=== PATIENT | male | born 1985 | race Two or more races ===

== ENCOUNTER 2017-08-18 18:13 | Inpatient (IN) | payer BC ==
[~2017-08-18] VITALS: Ht 172.7 cm; Wt 87.0 kg
[2017-08-18] MEDS ORDERED: PROPOFOL 100 ML IV ONE (18:20)
[2017-08-18 19:00] VITALS: BP 130/76
[2017-08-18 19:20] VITALS: BP 104/62
[2017-08-18] MEDS: PROPOFOL 100 ML IV PRN (19:52)
[2017-08-18] MEDS ORDERED: PROPOFOL 100 ML IV PRN (21:44)
[2017-08-18] MEDS: ALBUTEROL/IPRATROPIUM 2.5MG/0.5MG, 3 ML INLINE SCH (21:51)
[2017-08-18] MEDS ORDERED: SENNOSIDES 8.8 MG/5 ML ORAL SOL NG PRN (22:00)
[2017-08-18] MEDS ORDERED: BISACODYL 10 MG SUPP PR PRN (22:00)
[2017-08-18] MEDS ORDERED: LACTULOSE 20 GM/30 ML UDC NG PRN (22:00)
[2017-08-18] MEDS ORDERED: LIDOCAINE-MPF 1%, 2ML ENDO PRN (22:00)
[2017-08-18] MEDS ORDERED: SENNA/DOCUSATE TABLET NG PRN (22:00)
[2017-08-18] MEDS ORDERED: SODIUM CHLORIDE 0.9% 1,000ML IV PRN (22:00)
[2017-08-18] MEDS ORDERED: PHARMACY MAY ADJ FOR RENAL FX MC SCH (22:00)
[2017-08-18 22:10] LABS: HEMATOCRIT 39.8 % (39.2-51.8); HEMOGLOBIN 13.4 g/dL (13.7-18.0); WHITE BLOOD COUNT 16.8 x10^3/uL (3.4-10)
[2017-08-18 22:21] LABS: BLOOD UREA NITROGEN 14 mg/dL (7-18)
[2017-08-18] MEDS: SODIUM CHLORIDE 0.9% 2,000 ML IV SCH (22:42)
[2017-08-18] MEDS: FAMOTIDINE 20 MG/2 ML IV SCH (22:42)
[2017-08-18] MEDS: PIPERACILLIN/TAZO/PMX 3.375GM 50 ML IV SCH (22:42)
[2017-08-18] MEDS: FENTANYL PF 100 MCG/2ML IVPush PRN (23:58)
[2017-08-19] MEDS: PROPOFOL 100 ML IV PRN ×4 (01:26→23:29)
[2017-08-19] MEDS: ALBUTEROL/IPRATROPIUM 2.5MG/0.5MG, 3 ML INLINE SCH ×6 (02:11→22:00)
[2017-08-19] MEDS: PIPERACILLIN/TAZO/PMX 3.375GM 50 ML IV SCH ×3 (04:01→21:17)
[2017-08-19 04:30] VITALS: BP 99/53
[2017-08-19] MEDS: FENTANYL PF 100 MCG/2ML IVPush PRN ×8 (04:42→21:45)
[2017-08-19 04:46] LABS: ABG COLLECTION SITE LEFT RADIAL; COLLATERAL CIRCULATION TESTING NORMAL
[2017-08-19 04:57] LABS: HEMATOCRIT 32.8 % (39.2-51.8); HEMOGLOBIN 11.2 g/dL (13.7-18.0); WHITE BLOOD COUNT 10.6 x10^3/uL (3.4-10)
[2017-08-19 05:02] LABS: ASPARTATE AMINO TRANSFERASE 54 U/L (15-37); BLOOD UREA NITROGEN 12 mg/dL (7-18)
[2017-08-19] MEDS: FAMOTIDINE 20 MG/2 ML IV SCH ×2 (11:37→21:56)
[2017-08-19 12:23] LABS: ABG COLLECTION SITE LEFT RADIAL; COLLATERAL CIRCULATION TESTING NORMAL
[2017-08-19 12:24] LABS: FIO2 40 %
[2017-08-19 15:00] LABS: IS PT STATUS REG ER OR PRE ER? NO
[2017-08-19] MEDS: SODIUM CHLORIDE 0.9% 2,000 ML IV SCH (15:37)
[2017-08-19] MEDS ORDERED: SODIUM CHLORIDE 0.9%, 500ML IVBOLUS ONE (17:30)
[2017-08-19 18:35] LABS: IS PT STATUS REG ER OR PRE ER? NO
[2017-08-20 00:47] LABS: IS PT STATUS REG ER OR PRE ER? NO
[2017-08-20] MEDS: ALBUTEROL/IPRATROPIUM 2.5MG/0.5MG, 3 ML INLINE SCH ×6 (02:00→22:09)
[2017-08-20] MEDS: FENTANYL PF 100 MCG/2ML IVPush PRN ×3 (02:27→08:36)
[2017-08-20] MEDS: SODIUM CHLORIDE 0.9% 2,000 ML IV SCH ×2 (02:30→13:10)
[2017-08-20] MEDS: PROPOFOL 100 ML IV PRN ×4 (03:21→17:19)
[2017-08-20] MEDS: PIPERACILLIN/TAZO/PMX 3.375GM 50 ML IV SCH ×4 (03:21→21:33)
[2017-08-20 04:26] LABS: ABG COLLECTION SITE RIGHT RADIAL; COLLATERAL CIRCULATION TESTING NORMAL
[2017-08-20 04:35] LABS: HEMATOCRIT 27.3 % (39.2-51.8); HEMOGLOBIN 9.2 g/dL (13.7-18.0)
[2017-08-20 06:43] LABS: BLOOD UREA NITROGEN 9 mg/dL (7-18)
[2017-08-20] MEDS: ENOXAPARIN 40 MG/0.4 ML SQ SCH (08:55)
[2017-08-20] MEDS: FENTANYL PF 2,500 MCG in SODIUM CHLORIDE 0.9% 200 ML IV PRN (11:35)
[2017-08-20] MEDS: FAMOTIDINE 20 MG/2 ML IV SCH ×2 (11:36→21:33)
[2017-08-21] MEDS: PROPOFOL 100 ML IV PRN ×5 (01:36→21:18)
[2017-08-21] MEDS: ALBUTEROL/IPRATROPIUM 2.5MG/0.5MG, 3 ML INLINE SCH ×2 (01:59→07:10)
[2017-08-21] MEDS: PIPERACILLIN/TAZO/PMX 3.375GM 50 ML IV SCH ×4 (03:30→21:14)
[2017-08-21 04:25] LABS: ABG COLLECTION SITE RIGHT RADIAL; COLLATERAL CIRCULATION TESTING NORMAL
[2017-08-21 04:28] LABS: HEMATOCRIT 28.2 % (39.2-51.8); HEMOGLOBIN 9.6 g/dL (13.7-18.0); WHITE BLOOD COUNT 6.8 x10^3/uL (3.4-10)
[2017-08-21 04:35] LABS: BLOOD UREA NITROGEN 11 mg/dL (7-18)
[2017-08-21] MEDS: ENOXAPARIN 40 MG/0.4 ML SQ SCH (08:42)
[2017-08-21] MEDS: FAMOTIDINE 20 MG/2 ML IV SCH ×2 (08:42→21:14)
[2017-08-21] MEDS ORDERED: ALBUTEROL/IPRATROPIUM 2.5MG/0.5MG, 3 ML INLINE PRN (14:00)
[2017-08-21] MEDS: POTASSIUM CHLORIDE 20 MEQ TAB.ER.PRT PO SCH (14:46)
[2017-08-21] MEDS ORDERED: POTASSIUM CHLORIDE 20 MEQ TAB.ER.PRT PO ONE (15:00)
[2017-08-21] MEDS ORDERED: FUROSEMIDE 40 MG/4 ML IV ONE (15:00)
[2017-08-22] MEDS: PIPERACILLIN/TAZO/PMX 3.375GM 50 ML IV SCH ×4 (02:53→20:39)
[2017-08-22] MEDS: PROPOFOL 100 ML IV PRN (02:53)
[2017-08-22 04:49] LABS: ABG COLLECTION SITE RIGHT RADIAL; COLLATERAL CIRCULATION TESTING NORMAL
[2017-08-22 04:51] LABS: HEMATOCRIT 29.6 % (39.2-51.8); HEMOGLOBIN 10.1 g/dL (13.7-18.0)
[2017-08-22] MEDS: FENTANYL PF 2,500 MCG in SODIUM CHLORIDE 0.9% 200 ML IV PRN (04:52)
[2017-08-22 05:18] LABS: ASPARTATE AMINO TRANSFERASE 46 U/L (15-37); BLOOD UREA NITROGEN 15 mg/dL (7-18)
[2017-08-22] MEDS: ENOXAPARIN 40 MG/0.4 ML SQ SCH (08:03)
[2017-08-22] MEDS: POTASSIUM CHLORIDE 20 MEQ TAB.ER.PRT PO SCH ×2 (08:03→15:05)
[2017-08-22] MEDS: FAMOTIDINE 20 MG/2 ML IV SCH ×2 (08:03→20:38)
[2017-08-22] MEDS ORDERED: FUROSEMIDE 40 MG/4 ML IV SCH (09:00)
[2017-08-22] MEDS ORDERED: HYDROcodone/APAP 5/325 TABLET PO PRN (10:30)
[2017-08-22] MEDS: HYDROcodone/APAP 5/325 TABLET PO PRN ×3 (15:05→22:50)
[2017-08-23] MEDS: PIPERACILLIN/TAZO/PMX 3.375GM 50 ML IV SCH (02:40)
[2017-08-23 04:54] LABS: ABG COLLECTION SITE RIGHT RADIAL
[2017-08-23 04:55] LABS: COLLATERAL CIRCULATION TESTING NORMAL
[2017-08-23 05:01] LABS: HEMATOCRIT 38.2 % (39.2-51.8); HEMOGLOBIN 13.1 g/dL (13.7-18.0); WHITE BLOOD COUNT 10.3 x10^3/uL (3.4-10)
[2017-08-23 05:10] LABS: BLOOD UREA NITROGEN 13 mg/dL (7-18)
[2017-08-23] MEDS: HYDROcodone/APAP 5/325 TABLET PO PRN ×4 (06:38→20:45)
[2017-08-23] MEDS ORDERED: POTASSIUM CHLORIDE 20 MEQ TAB.ER.PRT PO SCH (09:13)
[2017-08-23] MEDS: ENOXAPARIN 40 MG/0.4 ML SQ SCH (10:14)
[2017-08-23] MEDS: FAMOTIDINE 20 MG/2 ML IV SCH (10:14)
[2017-08-23 17:30] VITALS: BP 132/89
[2017-08-23 20:00] VITALS: BP 134/81
[2017-08-23 23:48] VITALS: BP 122/73
[2017-08-24] MEDS: HYDROcodone/APAP 5/325 TABLET PO PRN ×6 (00:41→20:59)
[2017-08-24 04:15] VITALS: BP 121/80
[2017-08-24 05:33] LABS: HEMATOCRIT 41.5 % (39.2-51.8); HEMOGLOBIN 14.1 g/dL (13.7-18.0); WHITE BLOOD COUNT 9.2 x10^3/uL (3.4-10)
[2017-08-24 05:50] LABS: BLOOD UREA NITROGEN 15 mg/dL (7-18)
[2017-08-24 07:31] VITALS: BP 126/76
[2017-08-24] MEDS ORDERED: ENOXAPARIN 40 MG/0.4 ML SQ SCH (09:00)
[2017-08-24 20:16] VITALS: BP 115/75
[2017-08-24] MEDS: TEMAZEPAM 15 MG CAPSULE PO PRN (20:59)
[2017-08-25] MEDS: HYDROcodone/APAP 5/325 TABLET PO PRN ×5 (01:11→20:47)
[2017-08-25 01:12] VITALS: BP 115/73
[2017-08-25 06:03] LABS: HEMOGLOBIN 14.1 g/dL (13.7-18.0); WHITE BLOOD COUNT 8.9 x10^3/uL (3.4-10)
[2017-08-25 06:11] LABS: BLOOD UREA NITROGEN 17 mg/dL (7-18)
[2017-08-25 08:06] VITALS: BP 113/67
[2017-08-25] MEDS: ENOXAPARIN 40 MG/0.4 ML SQ SCH (09:14)
[2017-08-25 13:32] VITALS: BP 116/67
[2017-08-25 19:18] VITALS: BP 111/69
[2017-08-25] MEDS: TEMAZEPAM 15 MG CAPSULE PO PRN (21:07)
[2017-08-26] MEDS: HYDROcodone/APAP 5/325 TABLET PO PRN ×7 (00:24→23:06)
[2017-08-26 02:04] VITALS: BP 97/65
[2017-08-26 05:27] LABS: HEMATOCRIT 40.9 % (39.2-51.8); HEMOGLOBIN 13.9 g/dL (13.7-18.0); WHITE BLOOD COUNT 8.4 x10^3/uL (3.4-10)
[2017-08-26 05:28] LABS: BLOOD UREA NITROGEN 18 mg/dL (7-18)
[2017-08-26 07:52] VITALS: BP 113/70
[2017-08-26] MEDS: ENOXAPARIN 40 MG/0.4 ML SQ SCH (09:26)
[2017-08-26] MEDS: TEMAZEPAM 15 MG CAPSULE PO PRN (20:12)
[2017-08-26 21:08] VITALS: BP 119/88
[2017-08-27 01:29] VITALS: BP 99/51
[2017-08-27 06:00] LABS: HEMATOCRIT 38.9 % (39.2-51.8); HEMOGLOBIN 13.1 g/dL (13.7-18.0); WHITE BLOOD COUNT 8.7 x10^3/uL (3.4-10)
[2017-08-27 06:24] LABS: BLOOD UREA NITROGEN 19 mg/dL (7-18)
[2017-08-27 07:08] VITALS: BP 109/62
[2017-08-27] MEDS: HYDROcodone/APAP 5/325 TABLET PO PRN ×4 (09:00→17:26)
[2017-08-27] MEDS: ENOXAPARIN 40 MG/0.4 ML SQ SCH (09:00)
[2017-08-27 13:10] VITALS: BP 114/74
[2017-08-27] MEDS ORDERED: TRAM-47 PO (14:18)
== END 2017-08-27 19:45 | disposition home or self-care (01) | DRG 208 ==
LOC: EDBD 18:56 → CCU 18:56 → 4NOR 08-23 17:29
PROVIDERS: ADMIT Internal Medicine; ATTEND Family Medicine
PROC: 0BH17EZ Insertion of Endotracheal Airway into Trachea, Via Natural or Artificial Opening (ICD-10-PCS; principal; 2017-08-18)
PROC: 5A1945Z Respiratory Ventilation, 24-96 Consecutive Hours (ICD-10-PCS; 2017-08-18)
PROC: 0T9B70Z Drainage of Bladder with Drainage Device, Via Natural or Artificial Opening (ICD-10-PCS; 2017-08-18)
DX: J96.01 Acute respiratory failure with hypoxia (principal); J69.0 Pneumonitis due to inhalation of food and vomit; E43 Unspecified severe protein-calorie malnutrition; G93.40 Encephalopathy, unspecified; E86.0 Dehydration; Z99.11 Dependence on respirator [ventilator] status; I07.1 Rheumatic tricuspid insufficiency; E87.5 Hyperkalemia; Z87.81 Personal history of (healed) traumatic fracture; Z68.34 Body mass index [BMI] 34.0-34.9, adult
CPT/HCPCS: 36415; 36600; 70450; 71010; 71250; 71275; 80048; 80053; 81001; 82040; 82803; 83605; 83735; 84100; 84478; 84484; 85025; 87040; 87070; 87081; 87086; 87205; 93306; 93970; 94002; 94003; 94640; J1650; J1940; J2543; J2704; J3010; J3490; J7620; 92523-GN; J7030; J7040; J7050; S0028

== ENCOUNTER 2017-09-05 07:41 | Observation (INO) | payer BC ==
[~2017-09-05] VITALS: Ht 172.7 cm; Wt 86.3 kg
[~2017-09-05 07:41] MED LIST: TRAM-47 PO
[2017-09-05 08:29] VITALS: BP 128/76
[2017-09-05] MEDS ORDERED: LACTATED RINGERS 1,000 ML IV SCH (08:36)
[2017-09-05] MEDS ORDERED: FENTANYL PF 100 MCG/2ML ONE ×4 (08:55→15:54)
[2017-09-05] MEDS ORDERED: MIDAZOLAM 1 MG/ML, 2ML ONE (08:55)
[2017-09-05] MEDS ORDERED: PROPOFOL 10 MG/ML, 20ML ONE (08:56)
[2017-09-05] MEDS ORDERED: CEFAZOLIN 1,000 MG ONE ×2 (08:57)
[2017-09-05] MEDS ORDERED: ROCURONIUM 10 MG/ML ONE (08:58)
[2017-09-05] MEDS ORDERED: ROPIvacaine/PF 0.5%, 30 ML ONE (08:59)
[2017-09-05] MEDS ORDERED: LIDOCAINE 1%, 2ML ONE (09:06)
[2017-09-05] MEDS ORDERED: BUPIVACAINE/PF 0.5% ONE (09:25)
[2017-09-05] MEDS ORDERED: ACETAMINOPHEN 325 MG TABLET PO PRN (09:30)
[2017-09-05] MEDS ORDERED: PROMETHAZINE 25 MG/ML, 1ML IV PRN (09:30)
[2017-09-05] MEDS ORDERED: OXYcodone 5 MG/5 ML ORAL.SOL UDC PO PRN (09:30)
[2017-09-05] MEDS ORDERED: hydrALAzine 20 MG/ML, 1ML IV PRN (09:30)
[2017-09-05] MEDS ORDERED: ONDANSETRON 2MG/ML, 2ML IVPush PRN ×2 (09:30→16:30)
[2017-09-05] MEDS ORDERED: MEPERIDINE/PF 25MG/0.5ML IVPush PRN (09:30)
[2017-09-05] MEDS ORDERED: LABETALOL 5MG/ML, 20ML IV PRN (09:30)
[2017-09-05] MEDS ORDERED: LIDOCAINE 1%, 2ML SQ PRN (10:00)
[2017-09-05] MEDS ORDERED: NEOSTIGMINE 1 MG/ML, 10ML ONE ×2 (11:24)
[2017-09-05] MEDS ORDERED: GLYCOPYRROLATE 0.4 MG/2 ML, 2ML ONE (11:24)
[2017-09-05] MEDS ORDERED: OXYcodone 5 MG/5 ML ORAL.SOL UDC ONE (15:54)
[2017-09-05] MEDS ORDERED: ACETAMINOPHEN 650 MG/20.3 ML UDC ONE (15:54)
[2017-09-05] MEDS: FENTANYL PF 100 MCG/2ML IV PRN ×2 (15:57→16:07)
[2017-09-05] MEDS ORDERED: HYDROmorphone 1 MG/ML, 1ML ONE (16:22)
[2017-09-05] MEDS: HYDROmorphone 1 MG/ML, 1ML IV PRN ×2 (16:29→16:45)
[2017-09-05] MEDS ORDERED: BISACODYL 10 MG SUPP PR PRN (16:30)
[2017-09-05] MEDS ORDERED: SENNA/DOCUSATE TABLET PO PRN (16:30)
[2017-09-05] MEDS ORDERED: MAGNESIUM HYDROXIDE 8%, 30ML UDC PO PRN (16:30)
[2017-09-05] MEDS ORDERED: HYDROcodone/APAP 5/325 TABLET PO PRN (16:30)
[2017-09-05] MEDS ORDERED: PROMETHAZINE 25 MG/ML, 1ML IM PRN (16:30)
[2017-09-05 18:30] VITALS: BP 114/47
[2017-09-05] MEDS: OXYcodone 5 MG/5 ML ORAL.SOL UDC PO PRN ×2 (18:31→23:11)
[2017-09-05] MEDS: KETOROLAC 30 MG/1 ML IVPush SCH (18:32)
[2017-09-05] MEDS: D5%-0.45% NACL 1,000 ML IV SCH (18:32)
[2017-09-05] MEDS: CEFAZOLIN PMX 2GM/50ML 50 ML IVPB SCH (20:25)
[2017-09-06 00:15] VITALS: BP 99/51
[2017-09-06] MEDS: KETOROLAC 30 MG/1 ML IVPush SCH ×2 (00:30→08:33)
[2017-09-06] MEDS: D5%-0.45% NACL 1,000 ML IV SCH ×3 (02:09→20:45)
[2017-09-06] MEDS: OXYcodone 5 MG/5 ML ORAL.SOL UDC PO PRN ×5 (02:55→17:08)
[2017-09-06] MEDS: CEFAZOLIN PMX 2GM/50ML 50 ML IVPB SCH (04:30)
[2017-09-06 04:33] VITALS: BP 113/65
[2017-09-06] MEDS: morphine SULFATE 10 MG/ML, 1ML IVPush PRN ×7 (05:22→14:16)
[2017-09-06] MEDS: ENOXAPARIN 40 MG/0.4 ML SQ SCH (05:47)
[2017-09-06 07:49] VITALS: BP 113/65
[2017-09-06 13:30] VITALS: BP 118/55
[2017-09-06] MEDS ORDERED: DIAZEPAM 5 MG TABLET PO PRN (17:30)
[2017-09-06] MEDS ORDERED: morphine SULFATE 10 MG/ML, 1ML IVPush PRN (17:30)
[2017-09-06 18:52] VITALS: BP 144/75
[2017-09-06] MEDS: OXYcodone IR 5MG TABLET PO PRN ×2 (19:56→23:04)
[2017-09-06] MEDS: KETOROLAC 30 MG/1 ML IVPush PRN (22:10)
[2017-09-06] MEDS: ACETAMINOPHEN 500 MG TABLET PO SCH (22:10)
[2017-09-07 00:02] VITALS: BP 132/72
[2017-09-07] MEDS: OXYcodone IR 5MG TABLET PO PRN ×5 (02:07→14:09)
[2017-09-07] MEDS: ACETAMINOPHEN 500 MG TABLET PO SCH ×2 (04:10→10:00)
[2017-09-07] MEDS: ENOXAPARIN 40 MG/0.4 ML SQ SCH (06:03)
[2017-09-07] MEDS: KETOROLAC 30 MG/1 ML IVPush PRN ×2 (06:03→14:09)
[2017-09-07 07:06] VITALS: BP 135/77
[2017-09-07] MEDS: D5%-0.45% NACL 1,000 ML IV SCH (08:09)
[2017-09-07] MEDS ORDERED: ENOX40SY4 SQ (09:16)
[2017-09-07] MEDS ORDERED: OXYC5TAB3 PO (12:23)
[2017-09-07 13:33] VITALS: BP 130/88
== END 2017-09-07 15:09 | disposition home or self-care (01) ==
LOC: OUT 07:41 → ORIP 16:09 → 4NOR 18:00
PROVIDERS: ADMIT Orthopaedic Surgery; ATTEND Orthopaedic Surgery
DX: S82.872A Displaced pilon fracture of left tibia, initial encounter for closed fracture (principal); S82.832A Other fracture of upper and lower end of left fibula, initial encounter for closed fracture; S92.192A Other fracture of left talus, initial encounter for closed fracture; S82.51XA Displaced fracture of medial malleolus of right tibia, initial encounter for closed fracture; S92.191A Other fracture of right talus, initial encounter for closed fracture; W11.XXXA Fall on and from ladder, initial encounter; Y93.89 Activity, other specified; Y92.89 Other specified places as the place of occurrence of the external cause; Y99.8 Other external cause status
CPT/HCPCS: 27823; 27828; 28445; 73600; 76001; 96365; 96372; 96375; 96376; 97162; G0378; J0690; J1170; J1650; J1885; J2250; J2270; J2405; J2704; J2710; J2795; J3010; J3490; J7120; C1713